=== PATIENT | male | born 1960 | race Caucasian/White ===

== ENCOUNTER 2016-11-01 00:55 | Emergency (ER) | payer MEDICAID ==
[2015-09-02 09:26] VITALS: BMI 24.1
[~2016-11-01 00:55] MED LIST: GLIMEPIRIDE2 MG PO; GLUCOPHAGE500 MG PO; HYDROCODONE-APA1 TAB PO; PROTONIX40 MG PO
[2016-11-01 01:21] LABS: BASOPHILS 0.4 % (0.0-2.0); EOSINOPHILS 0 % (0-7); HEMATOCRIT 43.8 % (42.0-54.0); HEMOGLOBIN 15.3 g/dL (13.5-17.5); IMMATURE GRANULOCYTES 0.2 % (0-5); LYMPHOCYTES 15.4 % (15-50); MCH 32.6 pg (26.0-34.0); MCHC 34.9 g/dL (31.0-37.0); MCV 93.2 fL (80.0-100.0); MEAN PLATELET VOLUME 11.6 fL (7.4-10.4); MONOCYTES 7.2 % (2-11); NEUTROPHILS 76.8 % (40-80); PLATELET COUNT 150 10x3/uL (130-400); RDW 12.8 % (11.5-14.5); WBC 8.5 10x3/uL (4.8-10.8)
[2016-11-01 01:21] LABS: APPEARANCE HAZY (CLEAR); BILIRUBIN NEGATIVE (NEGATIVE); COLOR DK YELLOW (YELLOW); GLUCOSE NEGATIVE (NEGATIVE); KETONE NEGATIVE (NEGATIVE); LEUKOCYTE ESTERASE TRACE (NEGATIVE); NITRITE NEGATIVE (NEGATIVE); PROTEIN 3+ mg/dL (NEGATIVE); SPECIFIC GRAVITY 1.025 (1.005-1.020); UROBILINOGEN NORMAL (NORMAL)
[2016-11-01 01:27] LABS: BACTERIA MODERATE /hpf (NONE SEEN); EPITHELIAL CELLS 0-5 /hpf (0-5); MUCUS <1+ /lpf (NONE SEEN); WHITE CELLS - URINE 0-5 /hpf (0-5)
[2016-11-01 01:28] LABS: AMORPHOUS SEDIMENT <1+ /lpf (NONE SEEN)
[2016-11-01 01:32] LABS: ALBUMIN 2.6 g/dL (3.4-5.0); ANION GAP 6.8 mmol/L (8-16); BILIRUBIN - TOTAL 0.52 mg/dL (0.2-1.3); CALCIUM 9.2 mg/dL (8.5-10.1); CARBON DIOXIDE 37.2 mmol/L (21.0-32.0); CREATININE - SERUM 1.1 mg/dL (0.6-1.3); PROTEIN - SERUM 8.3 g/dL (6.4-8.2)
== END 2016-11-01 02:56 | disposition home or self-care (01) ==
LOC: D.ER 00:55
PROVIDERS: Emergency Medicine
DX: I10 Essential (primary) hypertension (principal); K29.00 Acute gastritis without bleeding; E11.9 Type 2 diabetes mellitus without complications; E03.9 Hypothyroidism, unspecified; F17.200 Nicotine dependence, unspecified, uncomplicated

== ENCOUNTER → 2018-05-29 08:27 | Outpatient (CLI) | payer MEDICAID ==
[2015-09-02 09:26] VITALS: BMI 24.1
== END | disposition home or self-care (01) ==
LOC: D.US 05-14 09:30
DX: E11.9 Type 2 diabetes mellitus without complications (principal); I12.9 Hypertensive chronic kidney disease with stage 1 through stage 4 chronic kidney disease, or unspecified chronic kidney disease; N18.4 Chronic kidney disease, stage 4 (severe)